=== PATIENT | female | born 1980 | race Caucasian/White ===

== ENCOUNTER 2019-05-18 22:30 | Observation (INO) ==
[2019-05-18 23:27] LABS: Bilirubin,Urine Small (Negative); Blood,Urine Large (Negative); Clarity,Urine Clear (Clear); Color,Urine Yellow (Yellow); Glucose,Urine (UA) Normal (Normal); Ketones,Urine Negative (Negative); Leukocyte Esterase,Urine Negative (Negative); Nitrite,Urine Negative (Negative); Protein,Urine Trace mg/dL (Neg-Trace); Specific Gravity,Urine > 1.030 (1.010-1.025); Urobilinogen,Urine Normal (Normal)
[2019-05-18 23:39] LABS: Bacteria,Urine None Seen per hpf (None-Few); Hyaline Casts,Urine Few per lpf (None-Few); RBC,Urine 15-30 per hpf (0-3); Squamous Epithelial Cell,Urine Many per lpf (None-Few); WBC,Urine 0-3 per hpf (0-3)
[2019-05-19 00:08] LABS: Basophils % 0.6 %; Eosinophils # 0.2 K/mcL (0.0-0.6); Eosinophils % 3.7 %; Hematocrit 41.4 % (35.3-44.9); Hemoglobin 13.8 g/dL (11.5-15.4); Immature Granulocytes % 0.2 % (0-4); Lymphocytes # 2.9 K/mcL (0.6-4.6); Lymphocytes % 44.9 %; Mean Corpuscular HGB Conc 33.3 g/dL (31.6-35.5); Mean Corpuscular Hemoglobin 31.6 pg (28.0-33.3); Mean Corpuscular Volume 94.7 fL (83.0-100.0); Mean Platelet Volume 9.4 fL (9.4-12.4); Monocytes # 0.4 K/mcL (0.0-1.3); Monocytes % 6.7 %; Neutrophils # 2.9 K/mcL (1.6-8.9); Platelet Count 297 K/mcL (140-400); Red Blood Count 4.37 M/mcL (3.82-4.97); Red Cell Distribution Width 13.7 % (11.5-14.5); Segmented Neutrophils % 43.9 %; White Blood Count 6.5 K/mcL (4.3-11.1)
[2019-05-19 00:13] LABS: Alanine Aminotransferase 20 Units/L (7-52); Albumin 4.9 g/dL (3.5-5.7); Albumin/Globulin Ratio 1.5 (1.1-2.2); Alkaline Phosphatase 85 Units/L (34-104); Amylase 41 Units/L (29-103); Aspartate Amino Transferase 26 Units/L (13-39); BUN/Creatinine Ratio 15 (6-26); Bilirubin,Direct 0.1 mg/dL (0.0-0.2); Bilirubin,Indirect 0.2 mg/dL (0.0-1.2); Bilirubin,Total 0.3 mg/dL (0.3-1.0); Blood Urea Nitrogen 12 mg/dL (6-20); Calcium 9.8 mg/dL (8.6-10.3); Carbon Dioxide 21 mEq/L (23-29); Chloride 106 mEq/L (98-107); Globulin 3.3 g/dL (2.4-3.5); Glucose 87 mg/dL (70-105); Lipase 21 Units/L (11-82); Osmolality,Calculated 285 (280-300); Sodium 138 mEq/L (136-145); Total Protein 8.2 g/dL (6.4-8.9); eGFR For African Americans > 60 (> 60); eGFR For Non-African Americans > 60 (> 60)
[2019-05-19] MEDS ORDERED: Ondansetron 4 MG/2 ML VIAL IVP ONE (00:34)
[2019-05-19] MEDS ORDERED: Ketorolac 30 MG/ML VIAL IVP ONE (00:34)
[2019-05-19] MEDS ORDERED: Ondansetron 4 MG/2 ML VIAL IVP PRN (04:36)
[2019-05-19] MEDS: 0.9 % Sodium Chloride 1,000 ML IV SCH ×2 (07:18→15:52)
--- NOTE | 2019-05-19 09:19 | Acute Care Surgery H&P ---
Date of Encounter: 05/19/19 Time of Encounter: 09:15 Assessment and Plan (1) Right lower quadrant pain Current Visit: Yes Status: Acute 38F with right lower quadrant pain; There is a large portion of her history that is not consistent with acute appendicitis, including duration of pain, progression of pain. In addition her WBC is normal and her CT scan is equivocal. The only portion of her story that is concerning for acute appendicitis is the pain on exam. Normally I would err on the side of surgery, but, with so many factors suggesting it is not acute appendicitis and the patient wanting to avoid surgery, and her clinical status not mandating surgery, i think non operative management for the next 24 hours is reasonable; I did discuss the plan for re-evaluation and the threshold for surgery including, persistent pain in the morning, or worsening in her exam or clinical status; the patient expressed understanding; NPO IVF IV abx pain control activity as tolerated serial exams, possible OR in AM pending abdominal exam; The assessment and plan as outlined above was discussed with the patient and/or family members who expressed understanding and agreement. All questions were answered. History of Present Illness Chief complaint: abdominal pain HPI: Ms. Sepulveda is a 38 year old female otherwise healthy who presents with a week and a half of abdominal pain. The pain began after an episode of heavy drinking per the patient that began along her right flank with migration to the right lower quadrant then down to her pelvis. The pain, over the last few days has been constant down towards her pelvis. No reports of fevers, chills, diarrhea, pain with urination, nor other systemic symptoms. She is currently on her menstrual cycle. She has had no prior surgeries. She presented to the ED for further evaluation. Of note, 1.) she is currently not having any pain due to the pain medications, but on palpation her pain is an 8/10, 2.) her white count is normal, and 3.) on CT there is minimal fat stranding that is equivocal for acute appendicitis at the tip of the appendix. I discussed all options with the patient including observation with antibiotics vs surgery. She personally does not want surgery if it can be avoided. Past Med Surg Social Fam HX - Past Medical History Medical history: no medical history Psychiatric history: anxiety, depression - Past Surgical History Additional surgical history: degenerative disc disease. "blood spider of left chest." - Social History Smoking Status: Current every day smoker Smokeless Tobacco Status: No Alcohol use: occasionally Drug use: marijuana, other - Additional Family History Additional family history: non contributory Medications and Allergies No Known Home Drugs 05/19/19 [History] Allergy/AdvReac Type Severity Reaction Status Date / Time No Known Allergies Allergy Verified 05/19/19 04:15 Review of Systems All systems PM: 12 point ROS negative besides HPi findings General Surgery Exam Initial Vital Signs Temp Pulse Resp BP Pulse Ox 98.9 F 97 20 137/101 97 05/18/19 22:59 05/18/19 22:59 05/18/19 22:59 05/18/19 22:59 05/18/19 22:59 - General physical appearance no distress - Eyes PERRL, normal ocular movement - ENT normocephalic - Neck trachea midline, no lymphadectomy - Respiratory normal expansion, normal respiratory effort - Cardiovascular Cardiovascular exam: Present: RRR - Abdomen Abdomen general surgery: Present: soft, tender ((-)rosving sign) Abdominal Tenderness: Present: suprapubic - Integumentary Integumentary general surgery: Present: warm and dry, no abnormal pigmentation - Neurologic Present: CN 2-12 grossly intact - Musculoskeletal Present: normal posture - Psychiatric Psychiatric general surgery: Present: A&Ox3 Results - Labs 05/18/19 23:40 05/18/19 23:40 Abnormal lab results Carbon Dioxide 21 mEq/L (23-29) L 05/18/19 23:40 Ur Specific [place] > 1.030 (1.010-1.025) H 05/18/19 23:15 Urine Blood Large (Negative) H 05/18/19 23:15 Urine Bilirubin Small (Negative) H 05/18/19 23:15 Urine Microscopic RBC 15-30 per hpf (0-3) H 05/18/19 23:15 Ur Squamous Epith Cells Many per lpf (None-Few) H 05/18/19 23:15 Diabetes panel 05/18/19 Range/Units 23:40 Sodium 138 (136-145) mEq/L Potassium 4.0 (3.5-5.1) mEq/L Chloride 106 (98-107) mEq/L Carbon Dioxide 21 L (23-29) mEq/L BUN 12 (6-20) mg/dL Creatinine 0.81 (0.60-1.20) mg/dL Glucose 87 (70-105) mg/dL Calcium 9.8 (8.6-10.3) mg/dL AST 26 (13-39) Units/L ALT 20 (7-52) Units/L Alkaline Phosphatase 85 (34-104) Units/L Albumin 4.9 (3.5-5.7) g/dL Calcium panel 05/18/19 Range/Units 23:40 Calcium 9.8 (8.6-10.3) mg/dL Albumin 4.9 (3.5-5.7) g/dL Pituitary panel 05/18/19 Range/Units 23:40 Sodium 138 (136-145) mEq/L Potassium 4.0 (3.5-5.1) mEq/L Chloride 106 (98-107) mEq/L Carbon Dioxide 21 L (23-29) mEq/L BUN 12 (6-20) mg/dL Creatinine 0.81 (0.60-1.20) mg/dL Glucose 87 (70-105) mg/dL Calcium 9.8 (8.6-10.3) mg/dL Adrenal panel 05/18/19 Range/Units 23:40 Sodium 138 (136-145) mEq/L Potassium 4.0 (3.5-5.1) mEq/L Chloride 106 (98-107) mEq/L Carbon Dioxide 21 L (23-29) mEq/L BUN 12 (6-20) mg/dL Creatinine 0.81 (0.60-1.20) mg/dL Glucose 87 (70-105) mg/dL Calcium 9.8 (8.6-10.3) mg/dL Total Bilirubin 0.3 (0.3-1.0) mg/dL AST 26 (13-39) Units/L ALT 20 (7-52) Units/L Alkaline Phosphatase 85 (34-104) Units/L Albumin 4.9 (3.5-5.7) g/dL All other labs normal. - Imaging CT scan - abdomen: report reviewed, image reviewed CT scan - pelvis: report reviewed, image reviewed
[2019-05-19] MEDS: Piperacillin/Tazobactam 3.375 GM in 0.9 % Sodium Chloride Mini Bag 100 ML IVPB SCH ×2 (11:33→21:13)
[2019-05-19] MEDS ORDERED: Piperacillin/Tazobactam 3.375 GM in D5% in Water (Mini-Bag+) 100 ML IVPB SCH (16:00)
[2019-05-20] MEDS ORDERED: 0.9 % Sodium Chloride 1,000 ML IV SCH (01:30)
[2019-05-20] MEDS: Piperacillin/Tazobactam 3.375 GM in 0.9 % Sodium Chloride Mini Bag 100 ML IVPB SCH (04:18)
[2019-05-20 06:55] VITALS: BP 102/65
--- NOTE | 2019-05-20 09:17 | Discharge Summary ---
<Lyndsey Rasmussen - Last Filed: 05/20/19 09:15> Date of Encounter: 05/20/19 Time of Encounter: 09:15 - Discharge Diagnosis (1) Right lower quadrant pain Priority: Primary Status: Resolved General Surgery Exam Initial Vital Signs Temp Pulse Resp BP Pulse Ox 98.9 F 97 20 137/101 97 05/18/19 22:59 05/18/19 22:59 05/18/19 22:59 05/18/19 22:59 05/18/19 22:59 - General physical appearance well nourished, no distress, no pain - Neck trachea midline - Respiratory normal expansion, normal respiratory effort - Cardiovascular Cardiovascular exam: Present: RRR - Abdomen Abdomen general surgery: Present: bowel sounds present, soft, non tender - Integumentary Integumentary general surgery: Present: warm and dry, no abnormal pigmentation - Neurologic Present: normal coordination, normal sensation - Musculoskeletal Present: normal gait, normal posture - Psychiatric Psychiatric general surgery: Present: A&Ox3 - Hospital Course Hospital course: Ms. Sepulveda is a 38 year old female who presented on 05/19/2019 with right lower quadrant pain following heavy use of tequila tonight prior. Her CT was unremarkable. She denied have a white blood cell count and was afebrile. She was supported with IV fluids, IV antibiotics and pain control for 24 hours. Her symptoms have completely resulted she would like to be discharged. She is advised if she has any return of your previous symptoms she should immediately return to the emergency department. We will begin discharge planning to home. No surgical follow-up as indicated. She should follow-up with her PCP in approximately one to 2 weeks. - Time Spent with Patient Total time spent providing and/or coordinating discharge services: - Discharge Medications Prescriptions: Continued No Known Home Drugs 1 each .ROUTE AD each Home Medications: No Known Home Drugs 05/19/19 [History] Allergies/Adverse Reactions: Allergy/AdvReac Type Severity Reaction Status Date / Time No Known Allergies Allergy Verified 05/19/19 04:15 Date of admission: 05/19/19 04:09 Primary care physician: PCP NONE Discharging clinician: Britton Campos (Grady Villareal, IVANIA) Anticipated date of discharge: 05/20/19 Labs on day of discharge: Labs from last 24 hours 05/19/19 05/19/19 05/19/19 17:18 12:02 05:15 POC Glucose 85 85 104 H - Impressions ITS Impressions Abdomen/Pelvis CT 05/19/19 00:34 IMPRESSION: Minimal fat stranding in the right lower quadrant near the tip of the appendix is equivocal for acute appendicitis. Please correlate with physical exam. Consider short interval follow-up study if exam is equivocal. No nephroureterolithiasis. D/ : / 05/19/2019 07:43:42 Bakari Flores / kalia Interpreting Provider: Bakari Flores - Patient Status Disposition: Home, Self-Care Condition: Good Functional capacity at discharge: independent ambulation Overall status at discharge: patient is back to baseline - Discharge Instructions Instructions: Acute Abdominal Pain (DC) Follow Up With: Maury Olsen DO [Resident] - 05/25/19 1:30 pm Forms: ED Satisfaction Letter, Work/School Release Additional Instructions: Return to the ER if you have return of your previous symptoms; otherwise follow- up with your PCP in 1-2 weeks. - Diet and Activity Activity: increase activity as tolerated Diet: advance to your usual diet <Britton Meyer - Last Filed: 05/20/19 09:41> Date of Encounter: 05/20/19 General Surgery Exam Initial Vital Signs Temp Pulse Resp BP Pulse Ox 98.9 F 97 20 137/101 97 05/18/19 22:59 05/18/19 22:59 05/18/19 22:59 05/18/19 22:59 05/18/19 22:59 - Hospital Course Hospital course: Ms. Sepulveda is a 38 year old female - Time Spent with Patient Total time spent providing and/or coordinating discharge services: Date of admission: 05/19/19 04:09 Primary care physician: PCP NONE Labs on day of discharge: Labs from last 24 hours 05/19/19 05/19/19 05/19/19 17:18 12:02 05:15 POC Glucose 85 85 104 H - Impressions ITS Impressions Abdomen/Pelvis CT 05/19/19 00:34 IMPRESSION: Minimal fat stranding in the right lower quadrant near the tip of the appendix is equivocal for acute appendicitis. Please correlate with physical exam. Consider short interval follow-up study if exam is equivocal. No nephroureterolithiasis. D/ / 05/19/2019 07:43:42 Bakari Flores / kalia Interpreting Provider: Bakari Flores - Attending Attestation I examined this patient and my medical decision-making was reviewed with the CAREER SERVICES DIRECTOR. I agree with the documented findings, disposition and treatment plan as de scribed to the extent set forth below. Pt admitted with RLQ abdominal pain. Pain has resolved. She denies any GI symptoms this morning. DC after regular diet. Instructions given for recommendations for return to ED for recurrent pain, n/v or fever. She understands and appears to be reliable.
== END 2019-05-20 10:34 | disposition home or self-care (01) ==
LOC: EMEROOARM 22:30 → 3ANU 22:30
PROVIDERS: ADMIT Surgery; ATTEND Surgery